=== PATIENT | female | born 1990 ===

== ENCOUNTER → 2021-08-14 10:04 | Outpatient (CLI) | payer BC, SELFPAY ==
--- NOTE | ~2021-08-14 | XR_ITS ---
EXAMINATION: XR cervical spine 4-5V DATE: 08/14/2021 10:44 INDICATION: Left hand numbness. TECHNIQUE: 5 views of cervical spine were obtained. COMPARISON: None. FINDINGS: Bone alignment is normal. Vertebral body heights and intervertebral disc heights are normal . The uncovertebral joints and facet joints are normal. No neural foraminal stenosis or central canal stenosis. No prevertebral soft tissue swelling. IMPRESSION: 1. Normal cervical spine. Reviewed, dictated and finalized at location A. IMPRESSION: 1. Normal cervical spine.
== END ==
PROVIDERS: Visit Provider Chiropractor
DX: R20.0 Anesthesia of skin (principal)
CPT/HCPCS: 72050